=== PATIENT | female | born 2000 | race Caucasian/White ===

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

== ENCOUNTER 2021-12-12 15:38 | Emergency (ER) | payer OTHER ==
[~2021-12-12] VITALS: Ht 165.1 cm; Wt 56.8 kg
[~2021-12-12 15:38] MED LIST: ZOFRAN 4MG T4 MG/TAB PO
[2021-12-12 16:48] VITALS: TEMP 98.4
[2021-12-12] MEDS ORDERED: LO LOESTRIN FE1 TAB PO (17:52)
[2021-12-12 17:53] LABS: HEMATOCRIT 40.2 % (35.0-45.0); HEMOGLOBIN 13.7 g/dl (12.0-15.0); MEAN CELL VOLUME 89 fl (80.0-95.0); MEAN CORPUSCULAR HEMOGLOBIN 30 pg (26-32); MEAN CORPUSCULAR HGB CONC 34 g/dl (33.0-37.0); MEAN PLATELET VOLUME 8.9 fl (7.4-10.4); PLATELET COUNT 168 K/mm3 (130-400); RED BLOOD COUNT 4.52 M/mm3 (4.10-5.30); REDCELL DISTRIBUTION WIDTH-CV 13.1 % (11.5-14.5)
[2021-12-12 18:12] LABS: ALBUMIN 3.6 gm/dL (3.5-5.0); BILIRUBIN,TOTAL 1.3 mg/dL (0.2-1.2); C-REACTIVE PROTEIN 6.1 mg/dL (0.00-0.50); CALCIUM 8.5 mg/dL (8.4-10.2); CREATININE, serum 0.71 mg/dL (0.57-1.11); POTASSIUM 3.9 mmol/L (3.5-4.5); TOTAL PROTEIN 7.1 gm/dL (6.2-8.1)
[2021-12-12 18:30] LABS: BAND 26 % (0-10); EOSINOPHIL 2 % (0-4); LYMPHOCYTE 30 % (20.0-51.0); NEUTROPHILS 35 % (42.0-75.2)
[2021-12-12 18:31] LABS: PLATELET ESTIMATE NORMAL (NORMAL)
[2021-12-12] MEDS ORDERED: ZOFRAN ODT4 MG PO (19:38)
[2021-12-12 19:50] VITALS: BP 116/71; PULSE 91
== END 2021-12-12 19:52 | disposition home or self-care (01) ==
LOC: COL.ER 15:38
PROVIDERS: Nurse Practitioner
DX: J03.90 Acute tonsillitis, unspecified (principal)
CPT/HCPCS: J1885; J2405; J7030